=== PATIENT | female | born 1975 | race African-American/Black ===

== ENCOUNTER 2019-06-15 15:31 | Emergency (ER) | payer SELFPAY ==
[~2019-06-15] VITALS: Ht 170.2 cm; Wt 75.0 kg
[~2019-06-15 15:31] MED LIST: NONE REPORTED
[2019-06-15] MEDS ORDERED: IBUPROFEN 600MG TABLET PO ONE (16:15)
[2019-06-15 18:04] VITALS: BP 110/74
== END 2019-06-15 18:17 | disposition home or self-care (01) ==
LOC: ER 15:31
DX: J03.80 Acute tonsillitis due to other specified organisms (principal); B96.89 Other specified bacterial agents as the cause of diseases classified elsewhere
CPT/HCPCS: 87070; 87430; 99283